=== PATIENT | female | born 1990 | race Caucasian/White ===

== ENCOUNTER 2023-08-13 19:55 | Inpatient (IN) ==
[2023-08-13] MEDS ORDERED: Promethazine INJ(RESTRICTED) 25 MG/ML 1 ml VIAL IV PRN (21:19)
[2023-08-13] MEDS ORDERED: Nalbuphine 10 MG/ML 1 ML VIAL IV PRN (21:19)
[2023-08-13] MEDS ORDERED: Lactated Ringers 1000 ml BAG 1,000 ML IV ONE ×2 (21:19→23:08)
[2023-08-13] MEDS ORDERED: Lidocaine 1% VIAL 10 MG/ML 30 ML VIAL INJ PRN (21:19)
[2023-08-13] MEDS ORDERED: Buffered Lidocaine 1% SYRIN 1 ml INTRADERM ONE (21:19)
[2023-08-13 21:37] LABS: ABS Lymphocytes 2.9 10^3/uL (1.0-4.8); ABS Neutrophils 8.7 10^3/uL (1.5-7.6); ABS Nucleated RBC 0.02 10^3/ul; Eosinophil % 0.4 %; Hematocrit 35.9 % (35-45); Hemoglobin 12.4 g/dL (11.5-14.3); Lymphocyte % 23.2 %; Mean Corpuscular Hemoglobin 31.4 pg (27-33); Mean Corpuscular Hgb Conc 34.5 g/dL (31-36); Mean Platelet Volume 8.7 fL (7.5-11.2); Nucleated Red Blood Cells % 0.1 %/100WBC (0.0-0.8); Platelet Count 207 10^3/uL (150-450); Red Blood Count 3.95 10^6/uL (3.63-4.92); Red Cell Distribution Width 13.5 % (12-17); White Blood Count 12.7 10^3/uL (3.8-11.8)
[2023-08-13 21:58] LABS: Urine Benzodiazepine Screen None Detected (None Detect); Urine Cannabinoids Screen None Detected (None Detect); Urine Opiates Screen None Detected (None Detect)
[2023-08-13] MEDS ORDERED: Lactated Ringers 1000 ml BAG 1,000 ML IV SCH ×2 (22:00→23:45)
[2023-08-13] MEDS ORDERED: Phenylephrine 40 mcg/mL 10mL (400mcg) SYRINGE IV PUSH PRN ×2 (23:08)
[2023-08-13] MEDS ORDERED: Sodium Citrate/Citric Acid LIQ 15 ML UDC PO PRN (23:08)
[2023-08-13] MEDS ORDERED: OBEPIDURAL (200 ML) 200 ML EPIDURAL SCH (23:45)
[2023-08-13 23:47] LABS: Urine Appearance Cloudy; Urine Bilirubin Negative (Negative); Urine Blood Negative (Negative); Urine Color Yellow; Urine Glucose Negative (Negative); Urine Ketones 2+ (Negative); Urine Nitrite Negative (Negative); Urine Protein Negative (Negative); Urine Specific Gravity 1.018 (1.002-1.030); Urine Urobilinogen Negative (Negative)
[2023-08-14] MEDS ORDERED: Oxytocin in LR 20,000 MILLI.UNIT/1,000 ML BAG IV ONE (02:18)
[2023-08-14] MEDS ORDERED: Glycerin ADULT 2.4 gm SUPP PR PRN (02:29)
[2023-08-14] MEDS ORDERED: Witch Hazel PAD JAR TOPICAL PRN (02:29)
[2023-08-14] MEDS ORDERED: Dibucaine 1% OINT 28.35 GM TUBE PR PRN (02:29)
[2023-08-14] MEDS ORDERED: Oxytocin in LR 20,000 MILLI.UNIT/1,000 ML BAG IV SCH (02:30)
[2023-08-14] MEDS ORDERED: Lactated Ringers 1000 ml BAG 1,000 ML IV SCH (03:00)
[2023-08-15 07:06] LABS: ABS Basophils 0.1 10^3/uL (0.0-0.1); ABS Eosinophils 0.1 10^3/uL (0.0-0.5); ABS Lymphocytes 3.4 10^3/uL (1.0-4.8); ABS Monocytes 0.6 10^3/uL (0.0-0.9); ABS Neutrophils 6.8 10^3/uL (1.5-7.6); Eosinophil % 1.1 %; Hematocrit 32.1 % (35-45); Hemoglobin 11.1 g/dL (11.5-14.3); Lymphocyte % 30.8 %; Mean Corpuscular Hemoglobin 31.9 pg (27-33); Mean Corpuscular Hgb Conc 34.5 g/dL (31-36); Mean Corpuscular Volume 92.3 fL (80-97); Mean Platelet Volume 8.4 fL (7.5-11.2); Platelet Count 193 10^3/uL (150-450); Red Blood Count 3.48 10^6/uL (3.63-4.92); Red Cell Distribution Width 13.5 % (12-17)
[2023-08-15 13:02] VITALS: BP 97/63
== END 2023-08-15 13:04 | disposition home or self-care (01) | DRG 560 ==
LOC: MCHOBOUT 19:55 → MCHOB 20:43
PROVIDERS: ADMIT Obstetrics & Gynecology; ATTEND Obstetrics & Gynecology